=== PATIENT | female | born 1965 | race Caucasian/White ===

== ENCOUNTER 2018-12-26 10:17 | Emergency (ER) | payer BC, OTHER ==
[~2018-12-26] VITALS: Ht 165.1 cm; Wt 85.7 kg
[2018-12-26] MEDS ORDERED: NS IV 1000 ML 1,000 ML IV SCH ×2 (10:45→11:15)
[2018-12-26 10:51] LABS: BASOPHILS % (AUTO) 0 % (0-10); EOSINOPHILS # (AUTO) 0.1 10^3/uL (0.0-0.3); EOSINOPHILS % (AUTO) 1 % (0-10); HEMATOCRIT 47 % (35-52); LYMPHOCYTES % (AUTO) 26 % (12-44); MEAN CORPUSCULAR HEMOGLOBIN 31 PG (25-34); MEAN CORPUSCULAR HGB CONC 36 G/DL (32-36); MEAN CORPUSCULAR VOLUME 85 FL (80-99); MONOCYTES % (AUTO) 9 % (0-12); NEUTROPHILS # (AUTO) 7.2 X 10^3 (1.8-7.8); NEUTROPHILS % (AUTO) 64 % (42-75); PLATELET COUNT 195 10^3/uL (130-400); RED CELL DISTRIBUTION WIDTH 13.4 % (10.0-14.5); WHITE BLOOD COUNT 11.3 10^3/uL (4.3-11.0)
--- NOTE | 2018-12-26 10:52 | ED GI ---
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 PT HAS AN ILLIOSTOMY THAT HAS BEEN LIQUID, NOT NORMAL. CC OF ABD PAIN, VOMITING, AND FEVER AT HOME. SS STARTED THURSDAY AND STATES SHE HAS LOST 10 LBS SINCE THEN. Sepsis Screen: Possible Sepsis Risk Source of Information: Patient Exam Limitations: No Limitations History of Present Illness Date Seen by Provider: Dec 26, 2018 Time Seen by Provider: 10:50 Initial Comments To ER per private vehicle from home with reports of diffuse body wide cramping, abdominal cramping, fevers, purely liquid output from her ileostomy which she has had for many years since she was a child secondary to ulcerative colitis. 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 No apparent blood or mucus in the stools. Timing/Duration: 2-3 Days Severity/Quality: Moderate, Cramping Location: Generalized Abdomen Radiation: Back Activities at Onset: None Associated Symptoms: Fever/Chills; No Nausea/Vomiting Allergies and Home Medications Allergies Coded Allergies: No Known Drug Allergies (Unverified , 12/26/18) Home Medications Cefuroxime Axetil 250 Mg Tablet, 250 MG PO BID Prescribed by: TAY GUERRERO on 12/26/18 1210 Patient Home Medication List Home Medication List Reviewed: Yes Review of Systems Review of Systems Constitutional: see HPI, chills, fever, malaise, weakness EENTM: No Symptoms Reported Respiratory: No Symptoms Reported Cardiovascular: No Symptoms Reported Gastrointestinal: See HPI, Abdominal Pain, Diarrhea; Denies Nausea, Denies Vomiting Genitourinary: No Symptoms Reported Musculoskeletal: see HPI, back pain, muscle pain Skin: no symptoms reported Psychiatric/Neurological: No Symptoms Reported Endocrine: No Symptoms Reported Past Cgdnuxp-[id number]-[id number] Hx Patient Social History Alcohol Use: Denies Use Recreational Drug Use: No Smoking Status: Current Everyday Smoker Type Used: Cigarettes Recent Foreign Travel: No Contact w/Someone Who Travel: No Recent Infectious Disease Expo: No Recent Hopitalizations: No Immunizations Up To Date Date of Influenza Vaccine: Jul 05, 2018 Seasonal Allergies Seasonal Allergies: No Past Medical History Surgeries: Yes Abdominal, Orthopedic Respiratory: No Cardiac: Yes Hypertension Neurological: No [employer] History: Menopausal Genitourinary: No Gastrointestinal: Yes (UC) Endocrine: No (HX OF DIET CONTROLLED) Diabetes, Non-Insulin dep HEENT: No Cancer: No Psychosocial: No Integumentary: No Physical Exam Vital Signs Vital Signs - First Documented 12/26/18 10:27 Temp 98.3 Pulse 111 Resp 22 B/P (MAP) 126/95 (105) Pulse Ox 95 O2 Delivery Room Air Capillary Refill : Less Than 3 Seconds Height/Weight/BMI Height: 5'5.00" Weight: 189lbs. oz. 85.929673kb; BMI Method:Stated General Appearance: WD/WN, no apparent distress HEENT: PERRL/EOMI, normal ENT inspection Respiratory: no respiratory distress, no accessory muscle use Gastrointestinal: normal bowel sounds, non tender, soft, other (ileostomy right lower abdomen liquid stool in it) Extremities: normal range of motion, non-tender Neurologic/Psychiatric: alert, normal mood/affect, oriented x 3 Skin: normal color, warm/dry Progress/Results/Core Measures Results/Orders Lab Results Laboratory Tests Test 12/26/18 10:35 12/26/18 11:00 Range/Units White Blood Count 11.3 H 4.3-11.0 10^3/uL Red Blood Count 5.57 4.35-5.85 10^6/uL Hemoglobin 17.0 H 11.5-16.0 G/DL Hematocrit 47 35-52 % Mean Corpuscular Volume 85 80-99 FL Mean Corpuscular Hemoglobin 31 25-34 PG Mean Corpuscular Hemoglobin Concent 36 32-36 G/DL Red Cell Distribution Width 13.4 10.0-14.5 % Platelet Count 195 130-400 10^3/uL Mean Platelet Volume 12.0 H 7.4-10.4 FL Neutrophils (%) (Auto) 64 42-75 % Lymphocytes (%) (Auto) 26 12-44 % Monocytes (%) (Auto) 9 0-12 % Eosinophils (%) (Auto) 1 0-10 % Basophils (%) (Auto) 0 0-10 % Neutrophils # (Auto) 7.2 1.8-7.8 X 10^3 Lymphocytes # (Auto) 3.0 1.0-4.0 X 10^3 Monocytes # (Auto) 1.0 0.0-1.0 X 10^3 Eosinophils # (Auto) 0.1 0.0-0.3 10^3/uL Basophils # (Auto) 0.0 0.0-0.1 10^3/uL Sodium Level 133 L 135-145 MMOL/L Potassium Level 4.5 3.6-5.0 MMOL/L Chloride Level 99 98-107 MMOL/L Carbon Dioxide Level 18 L 21-32 MMOL/L Anion Gap 16 H 5-14 MMOL/L Blood Urea Nitrogen 28 H 7-18 MG/DL Creatinine 1.55 H 0.60-1.30 MG/DL Estimat Glomerular Filtration Rate 35 BUN/Creatinine Ratio 18 Glucose Level 138 H 70-105 MG/DL Calcium Level 10.5 H 8.5-10.1 MG/DL Corrected Calcium 8.5-10.1 MG/DL Magnesium Level 2.3 1.8-2.4 MG/DL Total Bilirubin 0.6 0.1-1.0 MG/DL Aspartate Amino Transf (AST/SGOT) 31 5-34 U/L Alanine Aminotransferase (ALT/SGPT) 27 0-55 U/L Alkaline Phosphatase 68 40-136 U/L Total Creatine Kinase 371 H 29-168 U/L Myoglobin 256.2 H 10.0-92.0 NG/ML Total Protein 8.7 H 6.4-8.2 GM/DL Albumin 4.9 H 3.2-4.5 GM/DL Lipase 40 8-78 U/L Urine Color YELLOW Urine Clarity VERY CLOUDY H Urine pH 5 5-9 Urine Specific [place] 1.030 H 1.016-1.022 Urine Protein 3+ H NEGATIVE Urine Glucose (UA) NEGATIVE NEGATIVE Urine Ketones 1+ H NEGATIVE Urine Nitrite NEGATIVE NEGATIVE Urine Bilirubin 1+ H NEGATIVE Urine Urobilinogen 1 NORMAL MG/DL Urine Leukocyte Esterase 1+ H NEGATIVE Urine RBC (Auto) 4+ H NEGATIVE Urine RBC NONE /HPF Urine WBC 25-50 H /HPF Urine Squamous Epithelial Cells 25-50 H /HPF Urine Crystals PRESENT H /LPF Urine Amorphous Sediment LARGE OFELIA URATES H /LPF Urine Bacteria MODERATE H /HPF Urine Casts NONE /LPF Urine Mucus NEGATIVE /LPF Urine Culture Indicated YES My Orders Orders - TAY GUERRERO APRN Cbc With Automated Diff (12/26/18 10:44) Comprehensive Metabolic Panel (12/26/18 10:44) Ua Culture If Indicated (12/26/18 10:44) Iv Heplock-Insert (Order) (12/26/18 10:44) Lipase (12/26/18 10:44) Ns Iv 1000 Ml (Sodium Chloride 0.9%) (12/26/18 10:45) Hyoscyamine Sl Tablet (Levsin Sl Tablet) (12/26/18 11:00) Ketorolac Injection (Toradol Injection) (12/26/18 11:00) Creatine Kinase (12/26/18 10:49) Myoglobin Serum (12/26/18 10:49) Magnesium (12/26/18 10:49) Ns Iv 1000 Ml (Sodium Chloride 0.9%) (12/26/18 11:15) Ct Abdomen/Pelvis Wo (12/26/18 11:26) Urine Culture (12/26/18 11:00) Ceftriaxone For Iv Use (Rocephin For I (12/26/18 11:45) Medications Given in ED Current Medications Medications Dose Ordered Sig/Reuben Route Start Time Stop Time Status Last Admin Dose Admin Ceftriaxone Sodium 1000 mg/ Sterile Water 10 ml @ 200 mls/hr ONCE ONCE IV 12/26/18 11:45 12/26/18 11:47 DC 12/26/18 12:02 200 MLS/HR Hyoscyamine Sulfate 0.25 mg ONCE ONCE PO 12/26/18 11:00 12/26/18 11:01 DC 12/26/18 11:04 0.25 MG Ketorolac Tromethamine 15 mg ONCE ONCE IVP 12/26/18 11:00 12/26/18 11:01 DC 12/26/18 11:04 15 MG Vital Signs/I&O 12/26/18 12/26/18 10:27 11:04 Temp 98.3 98.3 Pulse 111 Resp 22 B/P (MAP) 126/95 (105) Pulse Ox 95 O2 Delivery Room Air Blood Pressure Mean: 105 Departure Impression Primary Impression: Dehydration Additional Impressions: Urinary tract infection Qualified Codes: N30.00 - Acute cystitis without hematuria Diarrhea Pancreatic incidentaloma Disposition: HOME, SELF-CARE Condition: Stable Departure-Patient Inst. Decision time for Depature: 12:07 Referrals: NO,LOCAL PHYSICIAN (PCP/Family) Primary Care Physician Patient Instructions: Diarrhea and Traveler's Diarrhea, Adult (DC), Urinary Tract Infection, Adult (DC) Add. Discharge Instructions: 1. Increase fluid intake. Pedialyte is a great choice. Water is fine too. Antibiotics as directed starting tomorrow for the bladder infection. 2. Follow-up with your doctor within 48 hours for recheck of blood work. Return to ER for any worsening symptoms. You may use [id number] Imodium to help slow the stools. All discharge instructions reviewed with patient and/or family. Voiced understanding. 3. Follow up with your doctor to also discuss obtaining a CT scan with IV contrast (after kidney function has returned to baseline) to further evaluate the cystic structure on the pancreas. Scripts Ondansetron (Ondansetron Odt) 8 Mg Tab.rapdis 8 MG PO Q6H PRN for NAUSEA/VOMITING, #10 TAB Prov: TAY GUERRERO APRN 12/26/18 Cefuroxime Axetil (Cefuroxime) 250 Mg Tablet 250 MG PO BID, #10 TAB . Prov: TAY GUERRERO APRN 12/26/18 Work/School Note: Work Release Form Date Seen in the Emergency Department: Dec 26, 2018 Return to Work: Dec 29, 2018 TAY GUERRERO APRN Dec 26, 2018 10:52
[2018-12-26] MEDS ORDERED: KETOROLAC 30 MG/ML VIAL IVP ONE (11:00)
[2018-12-26] MEDS ORDERED: HYOSCYAMINE 0.125 MG (LEVSIN) TAB PO ONE (11:00)
[2018-12-26 11:03] LABS: ALANINE AMINOTRANSFERASE 27 U/L (0-55); ALBUMIN 4.9 GM/DL (3.2-4.5); ALKALINE PHOSPHATASE 68 U/L (40-136); BILIRUBIN,TOTAL 0.6 MG/DL (0.1-1.0); BUN/CREATININE RATIO 18; CALCIUM 10.5 MG/DL (8.5-10.1); CARBON DIOXIDE 18 MMOL/L (21-32); CHLORIDE 99 MMOL/L (98-107); CREATININE SERUM 1.55 MG/DL (0.60-1.30); GFR ESTIMATED 35; GLUCOSE 138 MG/DL (70-105); LIPASE 40 U/L (8-78); POTASSIUM 4.5 MMOL/L (3.6-5.0); SODIUM 133 MMOL/L (135-145); TOTAL PROTEIN 8.7 GM/DL (6.4-8.2)
[2018-12-26 11:05] LABS: BILIRUBIN,URINE 1+ (NEGATIVE); CLARITY,URINE VERY CLOUDY; COLOR,URINE YELLOW; GLUCOSE, URINE (UA) NEGATIVE (NEGATIVE); KETONES,URINE 1+ (NEGATIVE); LEUKOCYTE ESTERASE ,URINE 1+ (NEGATIVE); NITRITE,URINE NEGATIVE (NEGATIVE); PH,URINE 5 (5-9); PROTEIN,URINE 3+ (NEGATIVE); UROBILINOGEN,URINE 1 MG/DL (NORMAL)
[2018-12-26 11:13] LABS: MAGNESIUM 2.3 MG/DL (1.8-2.4)
[2018-12-26 11:19] LABS: MYOGLOBIN SERUM 256.2 NG/ML (10.0-92.0)
[2018-12-26 11:36] LABS: WBC,URINE 25-50 /HPF
[2018-12-26 11:37] LABS: AMORPHOUS SEDIMENT,UR LARGE AMOR URATES /LPF; BACTERIA,URINE MODERATE /HPF; SQUAMOUS EPITHELIAL CELL,UR 25-50 /HPF
[2018-12-26] MEDS ORDERED: cefTRIAXone FOR IV USE 1,000 MG in WATER (STERILE) FOR INJECTION 10 ML IV ONE (11:45)
[2018-12-26] MEDS ORDERED: CEFU250T80 PO ×2 (12:10→12:44)
--- NOTE | 2018-12-26 12:29 | Diagnostic Imaging Report ---
PROCEDURE: CT abdomen and pelvis without contrast. TECHNIQUE: Multiple contiguous axial images were obtained through the abdomen and pelvis without the use of intravenous contrast. Auto Exposure Controls were utilized during the CT exam to meet ALARA standards for radiation dose reduction. INDICATION: Abdominal pain, vomiting, fever. Abnormal liquid stool in ileostomy bag. CORRELATION STUDY: None FINDINGS: Minimal scarring left lung base. Small hiatal hernia. The unenhanced liver demonstrates likely focal fatty infiltration along the falciform ligament. Spleen with calcified granulomas. Gallbladder is present and contains gallstone. No bile duct dilatation. Very questionable minimal cystic change near the pancreatic head at 7 mm in size. Adrenal glands unremarkable. Abdominal aorta normal in contour. Kidneys unremarkable in appearance. No calcification or hydronephrosis. Abdominal aorta normal in contour. There are few scattered small shotty subcentimeter central mesenteric lymph nodes present. Surgical changes of the abdomen including a colectomy and right lower quadrant ostomy. The stomach decompressed. Small bowel nonobstructed. No definitive inflammatory change. Urinary bladder decompressed. Uterus and adnexa appearing unremarkable. IMPRESSION: 1. No findings to suggest bowel obstruction or definitive inflammation about the gastrointestinal tract. 2. Cholelithiasis. 3. Very questionable small low-density nodule in the head of the pancreas. Consideration for nonemergent post gastrointestinal and intravenous contrast imaging of the pancreas. Dictated by: Dictated on workstation # [id number]
[2018-12-26] MEDS ORDERED: ONDA8TAB13 PO (12:44)
[2018-12-26 12:56] VITALS: BP 120/75
== END 2018-12-26 12:56 | disposition home or self-care (01) ==
LOC: ER 10:19 → EDBD 10:19 → ER 12:56
DX: N39.0 Urinary tract infection, site not specified (principal); E86.0 Dehydration; D37.8 Neoplasm of uncertain behavior of other specified digestive organs; R19.7 Diarrhea, unspecified; I10 Essential (primary) hypertension; E11.9 Type 2 diabetes mellitus without complications; F17.210 Nicotine dependence, cigarettes, uncomplicated; Z98.890 Other specified postprocedural states; Z93.2 Ileostomy status
CPT/HCPCS: 36415; 74176; 80053; 81000; 82550; 83690; 83735; 83874; 85025; 87088; 96361; 96374; 96375